=== PATIENT | female | born 1955 | race Caucasian/White ===

== ENCOUNTER 2023-05-05 15:52 | Emergency (ER) | payer OTHER ==
[~2023-05-05] VITALS: Ht 160 cm; Wt 0.0 kg
[2023-05-05] MEDS ORDERED: iohexoL 350 mgI/mL, 100 ML INFUS..BTL IV ONE (16:00)
[2023-05-05 16:01] VITALS: BP_SYST 119; PULSE 112; PULSE 205; RESP 22; TEMP 98.3; O2SAT 96
[2023-05-05 16:17] LABS: ANION GAP 14 (5-15); CALCIUM 9.6 mg/dL (8.4-11.0); CARBON DIOXIDE 23 mmol/L (23-29); CHLORIDE 97 mmol/L (98-107); CREATININE 1.05 mg/dL (0.55-1.30); GFR AFRICAN AMERICAN 67 mL/min (>90); GFR NON AFRICAN-AMERICAN 55 mL/min (>90); GLUCOSE 310 mg/dL (74-106); POTASSIUM 4.1 mmol/L (3.5-5.1); SODIUM SERUM 134 mmol/L (136-145); UREA NITROGEN, BLOOD 13 mg/dL (8-21)
[2023-05-05 16:18] LABS: BASOPHILS % (AUTO) 0.3 % (0.0-2.0); EOSINOPHILS % (AUTO) 0.1 % (0.0-4.0); HEMATOCRIT 36.1 % (36-48); HEMOGLOBIN 12.7 g/dL (12.0-16.0); LYMPHOCYTES % (AUTO) 15.2 % (20.5-51.5); MEAN CORPUSCULAR HEMOGLOBIN 32 pg (27-31); MEAN CORPUSCULAR HGB CONC 35 % (32-36); MEAN CORPUSCULAR VOLUME 90 fL (79.0-98.0); MONOCYTES % (AUTO) 7.7 % (1.7-9.3); NEUTROPHILS % (AUTO) 76.7 % (40.0-70.0); PLATELET COUNT (AUTO) 316 K/uL (130-430); RED BLOOD CELL COUNT(AUTO) 4.03 MIL/uL (4.2-6.2); RED CELL DISTRIBUTION WIDTH 13.3 % (9.0-15.0)
[2023-05-05 16:25] LABS: ALCOHOL, BLOOD 3 mg/dL (<10)
[2023-05-05 16:32] LABS: ABG O2 SAT% ESTIMATE 95.8 % (94.0-100.0); BLOOD GAS BASE EXCESS 0.8 mmol/L (-3.0-3.0); BLOOD GAS HCO3 24.4 mmol/L (21.0-27.0); BLOOD GAS PCO2 35.8 mmHg (35.0-45.0); BLOOD GAS PH 7.451 (7.350-7.450); BLOOD GAS PO2 75.3 mmHg (75.0-100.0)
[2023-05-05 16:33] LABS: ALLEN'S TEST POSITIVE (P)
[2023-05-05 16:46] LABS: ALBUMIN 3.3 g/dL (3.4-4.8); BILIRUBIN,DIRECT 0.3 mg/dL (0.0-0.3); TOTAL BILIRUBIN 1.2 mg/dL (0.0-1.0); TOTAL PROTEIN, SERUM 7.7 g/dL (6.4-8.3)
[2023-05-05 17:10] LABS: SALICYLATE < 1 mg/dL (3-30)
[2023-05-05 17:11] LABS: ACETAMINOPHEN < 1 ug/mL (1-30)
[2023-05-05 17:16] LABS: PROTHROMBIN TIME 10.3 SECS (9.5-12.5)
[2023-05-05 17:55] LABS: BILIRUBIN,URINE NEGATIVE (NEGATIVE); COLOR,URINE YELLOW (YELLOW); GLUCOSE,URINE 3+ (NEGATIVE); KETONES,URINE 2+ (NEGATIVE); LEUKOCYTE ESTERASE ,URINE NEGATIVE (NEGATIVE); NITRITE, URINE POSITIVE (NEGATIVE); PH,URINE 6.5 (5.0-8.0); PROTEIN URINE TRACE (NEGATIVE); UROBILINOGEN,URINE 0.2 (0.2-1.0)
[2023-05-05 18:13] LABS: BLOOD, URINE TRACE (NEGATIVE)
[2023-05-05 18:15] LABS: CLARITY/URINE HAZY (CLEAR)
[2023-05-05] MEDS ORDERED: D5W 1,000 ML IV PRN (18:15)
[2023-05-05] MEDS ORDERED: INSULIN LISPRO SLIDING SCALE 100 UNITS/ML, 3 ML VIAL (humaLOG) SUBCUT PRN (18:15)
[2023-05-05] MEDS ORDERED: ONDANSETRON HCL 4 MG/2 ML VIAL IVP PRN (18:15)
[2023-05-05] MEDS ORDERED: HYDROcodone/ACETAMIN 5-325 MG TAB (NORCO/ VICODIN) PO PRN (18:15)
[2023-05-05] MEDS ORDERED: GLUCOSE (DEXTROSE) ORAL GEL -Adults PO PRN (18:15)
[2023-05-05 18:18] LABS: BARBITURATE, URINE NEGATIVE (NEG <=200); BENZODIAZEPINE, URINE NEGATIVE (NEG <=150); CANNABINOID, URINE NEGATIVE (NEG <=50); COCAINE, URINE NEGATIVE (NEG <=150); METHAMPHETAMINES SCREEN,URINE NEGATIVE (NEG <=500); OPIATE, URINE NEGATIVE (NEG <=100); PHENCYCLIDINE SCREEN,URINE NEGATIVE (NEG <=25); URINE AMPHETAMINE NEGATIVE (NEG <=500); URINE METHADONE NEGATIVE (NEG <=200); URINE OXYCODONE SCREEN NEGATIVE (NEG <=100)
[2023-05-05 18:19] LABS: UR TRICYCLIC ANTIDEPRESSANTS NEGATIVE (NEG <=300)
[2023-05-05 18:39] LABS: BACTERIA,URINE MODERATE /HPF (None Seen); MUCUS,URINE None Seen /LPF (None Seen); RBC,URINE 0-3 /HPF (0-3)
[2023-05-05] MEDS: NACL 0.9% 1,000 ML IV SCH (19:52)
[2023-05-05] MEDS ORDERED: cefTRIAXone 1 GM VIAL ONE (20:00)
[2023-05-05] MEDS ORDERED: cefTRIAXone 1 GM in D5W 50 ML IV SCH (20:00)
[2023-05-05] MEDS ORDERED: ATORVASTATIN 20 MG TABLET PO SCH (21:00)
[2023-05-05] MEDS: INSULIN GLARGINE 100 UNITS/ML, 10 ML VIAL SUBCUT SCH (22:19)
[2023-05-05] MEDS ORDERED: ACETAMINOPHEN 325 MG TABLET PO PRN ×2 (23:00)
[2023-05-06] MEDS ORDERED: INSULIN Lispro 100 UNITS/ML, 3 ML VIAL (humaLOG) SUBCUT SCH (07:00)
[2023-05-06] MEDS: NACL 0.9% 1,000 ML IV SCH (07:44)
[2023-05-06 07:51] LABS: BASOPHILS % (AUTO) 0.3 % (0.0-2.0); EOSINOPHILS % (AUTO) 0.2 % (0.0-4.0); HEMATOCRIT 33.4 % (36-48); HEMOGLOBIN 11.7 g/dL (12.0-16.0); LYMPHOCYTES # (AUTO) 1.3 K/uL (1.0-5.5); LYMPHOCYTES % (AUTO) 13.4 % (20.5-51.5); MEAN CORPUSCULAR HEMOGLOBIN 31 pg (27-31); MEAN CORPUSCULAR HGB CONC 35 % (32-36); MEAN CORPUSCULAR VOLUME 90 fL (79.0-98.0); MONOCYTES # (AUTO) 0.8 K/uL (0.0-1.0); MONOCYTES % (AUTO) 8.5 % (1.7-9.3); NEUTROPHILS # (AUTO) 7.6 K/uL (1.8-7.7); NEUTROPHILS % (AUTO) 77.6 % (40.0-70.0); PLATELET COUNT (AUTO) 258 K/uL (130-430); RED BLOOD CELL COUNT(AUTO) 3.72 MIL/uL (4.2-6.2); RED CELL DISTRIBUTION WIDTH 13.3 % (9.0-15.0); WHITE BLOOD COUNT (AUTO) 9.8 K/uL (4.8-10.8)
[2023-05-06 07:57] LABS: HEMOGLOBIN A1C 10.05 % (<5.7)
[2023-05-06 08:15] LABS: CREATININE 0.82 mg/dL (0.55-1.30); POTASSIUM 4.1 mmol/L (3.5-5.1); THYROID STIMULATING HORMONE 1.77 uIu/mL (0.34-4.82)
[2023-05-06] MEDS ORDERED: ENOXAPARIN SODIUM 40 MG/0.4 ML SYRINGE SUBCUT SCH (09:00)
[2023-05-06] MEDS: INSULIN GLARGINE 100 UNITS/ML, 10 ML VIAL SUBCUT SCH (10:03)
[2023-05-06 15:32] VITALS: BP_SYST 134; PULSE 80; RESP 20; TEMP 98.2; O2SAT 98
== END 2023-05-06 15:00 | disposition left against medical advice (07) ==
LOC: SED 15:52 → UNDOADMIN 18:13 → STU 18:13
DX: R41.3 Other amnesia (principal); I10 Essential (primary) hypertension; E11.9 Type 2 diabetes mellitus without complications; Z79.899 Other long term (current) drug therapy
CPT/HCPCS: 99291; 70496; 96365; 71045; 80307; 80076; 80048 ×2; 82140; 82962 ×2; 85025 ×2; 85610; 85730; 87040; 87086; 84484; 36415 ×2; 93005; 70498; 36600; 82803; 70450; 81001; 93306; 70551; 96361; 80061; 83037; 84443; 96372; 76376; Q9967; J0696; J1815; J7060; G0482; J1650; J7030; G0480; G0481; 81000; 81015; G0378